=== PATIENT | female | born 1955 | race Caucasian/White ===

== ENCOUNTER 2024-03-11 08:22 | Outpatient (CLI) | payer MEDICARE | END 2024-03-11 08:23 | disposition home or self-care (01) | LOC: BICULT 08:22 | PROVIDERS: ATTEND Family Medicine | DX: E04.1 Nontoxic single thyroid nodule (principal) | CPT/HCPCS: 76536 ==

== ENCOUNTER 2024-07-01 14:31 | Outpatient (CLI) | payer MEDICARE | END 2024-07-01 14:32 | disposition home or self-care (01) | LOC: BICULT 14:31 | PROVIDERS: ATTEND Family Medicine | DX: M79.601 Pain in right arm (principal) | CPT/HCPCS: 76881 ==

== ENCOUNTER → 2024-07-16 | Outpatient (CLI) | payer MEDICARE | LOC: BICMRI 12:34 | PROVIDERS: ATTEND Family Medicine | DX: M79.601 Pain in right arm (principal); R93.89 Abnormal findings on diagnostic imaging of other specified body structures ==

== ENCOUNTER 2024-08-18 14:50 | Outpatient (CLI) | payer MEDICARE | END 2024-08-18 14:51 | disposition home or self-care (01) | LOC: BICMAMMO 14:50 | PROVIDERS: ATTEND Family Medicine | DX: Z12.31 Encounter for screening mammogram for malignant neoplasm of breast (principal); Z78.0 Asymptomatic menopausal state | CPT/HCPCS: 77063; 77067; 77080 ==